=== PATIENT | female | born 1970 | race Caucasian/White ===

== ENCOUNTER → 2020-11-24 | Outpatient (CLI) | payer BC ==
--- NOTE | 2020-11-25 07:44 | ECHOF ---
Referral Reason:R07.89 Atypical Chest Pain MEASUREMENTS -------- HEIGHT: 165.1 cm WEIGHT: 106.1 kg BP: RVIDd: 2.0 cm (< 3.3) IVSd: 1.2 cm (0.6 - 1.1) LVIDd: 4.1 cm (3.9 - 5.3) LVPWd: 1.3 cm (0.6 - 1.1) IVSs: 1.5 cm LVIDs: 2.5 cm LVPWs: 1.8 cm LAESV Index (A-L): 24.69 ml/m MV EXCURSION: 22.775 mm (> 18.000) MV EF SLOPE: 155 mm/s (70 - 150) EPSS: 1.4 cm MV E Zi: 0.73 m/s MV DecT: 159 ms MV A Zi: 0.50 m/s MV E/A Ratio: 1.48 RAP: 5.00 mmHg RVSP: 16.58 mmHg FINDINGS -------- This was a technically good study. The left ventricular size is normal. There is mild concentric left ventricular hypertrophy. Overa ll left ventricular systolic function is normal with, an EF between 55 - 60 %. The diastolic fillin g pattern is normal for the age of the patient 8.04. The right ventricle is normal in size. The left atrial size is normal. Normal LA size by volume 22+/-6 ml/m2. The right atrial size is normal. Dropout seen in the interatrial septum. The aortic valve is trileaflet and appears structurally normal. The mitral valve is normal. There is trace mitral regurgitation. The tricuspid valve appears structurally normal. Mild tricuspid regurgitation present. Right vent ricular systolic pressure is normal at < 35 mmHg. There is no pulmonic regurgitation present. The aortic root size is normal. Normal inferior vena cava with normal inspiratory collapse consistent with estimated right atrial pre ssure of 5 mmHg. There is no pericardial effusion. CONCLUSIONS -------- 1. The left ventricular size is normal. 2. There is mild concentric left ventricular hypertrophy. 3. Overall left ventricular systolic function is normal with, an EF between 55 - 60 %. 4. The diastolic filling pattern is normal for the age of the patient 8.04 5. Dropout seen in the interatrial septum. 6. There is trace mitral regurgitation. 7. Mild tricuspid regurgitation present. 8. There is no pericardial effusion. GENERAL MANAGER: Joya Moore RDCS
== END | disposition home or self-care (01) ==
LOC: RADECHMAIN 14:11
PROVIDERS: ATTEND Family Medicine
DX: I08.1 Rheumatic disorders of both mitral and tricuspid valves (principal); I51.7 Cardiomegaly
CPT/HCPCS: 93306

== ENCOUNTER 2021-10-06 09:25 | Day surgery (SDC) | payer BC ==
[2021-10-03 12:57] VITALS: BMI 39.1
[~2021-10-06 09:25] MED LIST: LACTATED RINGERS 1,000 ML IV SCH
[2021-10-06 10:02] VITALS: RESP 16; TEMP 97.6
[2021-10-06 10:05] LABS: Glucose,Whole Blood 93 mg/dL (75-99)
[2021-10-06] MEDS ORDERED: LIDOCAINE 1% (10MG/ML) FOR IV START INTRADERMA ONE (10:05)
[2021-10-06] MEDS ORDERED: PROPOFOL 10 MG/ML 20 ML VIAL IV ONE (10:21)
[2021-10-06] MEDS ORDERED: LIDOCAINE 1% INJ 10MG/ML (20 ML MDV) ONE (10:21)
--- NOTE | 2021-10-06 10:45 | P.PCN ---
Date of Procedure: 10/06/21 Procedure(s) Performed: BRIEF HISTORY: Patient is a 51-year-old, pleasant, white female scheduled for an upper endoscopy as a part of evaluation of long-standing history of GERD of several years duration. Currently on Protonix 40 mg daily and doing well. Schedule for an upper endoscopy to rule out complicated reflux disease. PROCEDURE PERFORMED: Esophagogastroduodenoscopy with biopsy. PREOPERATIVE DIAGNOSIS: Long-standing history of GERD. IV sedation per anesthesia. PROCEDURE: After informed consent was obtained, the patient was brought into the endoscopy unit. IV sedation was administered by Anesthesia under continuous monitoring. Initially the Olympus GIF-140 video endoscope was inserted into the mouth. Esophagus intubated without any difficulty. It was gradually advanced into the stomach and duodenum and carefully examined. The bulb and the second part of the duodenum appeared normal. The second part of the duodenum there was a 7 mm polyp that was biopsied. The scope at this time was withdrawn to the stomach, adequately insufflated with air, and upon careful examination, mucosa of the antrum, body, cardia and the fundus appeared normal. The scope was then withdrawn into the esophagus. Small hiatal hernia noted. The GE junction was located at 36 cm from the incisors. There was once a fissure erosions at the GE junction consistent with LA grade A reflux esophagitis. The e rest of the sophagus appeared normal. The patient tolerated the procedure well. IMPRESSION: 1. 7 mm duodenal polyp status post post biopsy. 2. Small hiatal hernia and LA grade a reflux esophagitis. 2. No evidence of Mota's esophagus RECOMMENDATIONS: The findings of this examination were discussed with the patient as well as a family. She was advised to follow with the biopsy results. She will continue with Protonix 40 mg daily and continue to follow antireflux measures.
[2021-10-06 11:13] VITALS: BP 137/88; PULSE 62
== END 2021-10-06 11:29 | disposition home or self-care (01) ==
LOC: ORWHC2ENDO 09:25
PROVIDERS: ATTEND Internal Medicine Gastroenterology
DX: K21.9 Gastro-esophageal reflux disease without esophagitis (principal); I10 Essential (primary) hypertension; E11.9 Type 2 diabetes mellitus without complications; J45.909 Unspecified asthma, uncomplicated
CPT/HCPCS: 43239; 88305; J2001; J2704

== ENCOUNTER → 2024-03-06 | Outpatient (CLI) | payer MEDICAID ==
[2024-03-06 16:49] LABS: African American GFR (CKD) 69 (>60 ml/min/1.73 sqM); Blood Urea Nitrogen 20 mg/dL (7-17); Non-African American GFR(CKD) 60 (>60 ml/min/1.73 sqM)
--- NOTE | 2024-03-06 19:48 | CT ---
EXAMINATION TYPE: CT angio chest CT DLP: 474.9 mGycm, Automated exposure control for dose reduction was used. DATE OF EXAM: 03/06/2024 5:39 PM COMPARISON: Chest PA. CLINICAL INDICATION:Female, 54 years old with history of R06.09 OTHER FORMS OF DYSPNEA; nickie TECHNIQUE/CONTRAST: CTA scan of the thorax is performed with IV Contrast, patient injected with 100 mL of Isovue 370, MIP images are created and reviewed these are created on a separate workstation.. FINDINGS: Pulmonary Artery: There is no evidence for a filling defect within the pulmonary vasculature to sugge st acute pulmonary embolism. The pulmonary artery is of normal size. Lungs/Pleura: No evidence of focal consolidation, pleural effusion or pneumothorax. Airway: Large airways are patent. Heart: Heart is within normal limits for size. Vasculature: No evidence of aortic aneurysm. Mediastinum: No gross evidence of adenopathy. Musculoskeletal: No acute osseous abnormalities Soft Tissues: Unremarkable. Lower neck: No significant findings. Upper Abdomen: No significant findings. IMPRESSION: 1. No evidence of pulmonary embolism. Follow up recommendations for incidental pulmonary nodules, if there are any, are per [employer] or [employer]. https://radiopaedia.org/articles/qhsmoguajo-[email or web address]?lang=us
== END | disposition home or self-care (01) ==
LOC: RADCTMAIN 15:51
PROVIDERS: ATTEND Internal Medicine
DX: R06.09 Other forms of dyspnea (principal)
CPT/HCPCS: 82565; 84520; 71275; 36415; Q9967

== ENCOUNTER → 2024-04-01 | Outpatient (CLI) | payer MEDICAID ==
--- NOTE | 2024-04-27 12:25 | CA ---
Transthoracic Echo Report Name: Sandie Garcia Age: 54 Gender: O : 1970 Exam Date: 04/01/2024 14:01 Exam Location: [facility] Ht (in): 64 Wt (lb): 240 Ordering Physician: Attending/Referring Phys: Private Chef Mary Melton RDCS Procedure CPT: Indications: Dyspnea, unspecified Cardiac Hx: Technical Quality: Fair Contrast 1: Total Dose (mL): Contrast 2: Total Dose (mL): MEASUREMENTS (Male / Female) Normal Values 2D ECHO LV Diastolic Diameter PLAX 3.9 cm 4.2 - 5.9 / 3.9 - 5.3 cm LV Systolic Diameter PLAX 2.3 cm IVS Diastolic Thickness 1.0 cm 0.6 - 1.0 / 0.6 - 0.9 cm LVPW Diastolic Thickness 1.0 cm 0.6 - 1.0 / 0.6 - 0.9 cm LV Relative Wall Thickness 0.5 RV Internal Dim ED PLAX 1.9 cm LA Systolic Diameter LX 3.2 cm 3.0 - 4.0 / 2.7 - 3.8 cm LV Diastolic Volume MOD BP 47.3 cm??? 67 - 155 / 56 - 104 cm??? LV Systolic Volume MOD BP 16.3 cm??? 22 - 58 / 19 - 49 cm??? LV Ejection Fraction MOD BP 65.6 % >= 55 % LV Cardiac Index MOD BP 1171.7 cm???/min???m??? LV Diastolic Volume MOD 4C 56.5 cm??? LV Systolic Volume MOD 4C 15.7 cm??? LV Ejection Fraction MOD 4C 72.3 % LV Cardiac Index MOD 4C 1545.0 cm???/min???m??? LV Diastolic Length 4C 6.8 cm LV Systolic Length 4C 5.5 cm LV Diastolic Volume MOD 2C 39.2 cm??? LV Systolic Volume MOD 2C 16.5 cm??? LV Ejection Fraction MOD 2C 57.9 % LV Cardiac Index MOD 2C 857.6 cm???/min???m??? LV Diastolic Length 2C 6.7 cm LV Systolic Length 2C 5.7 cm LA Volume 63.1 cm??? 18 - 58 / 22 - 52 cm??? LA Volume Index 27.8 cm???/m??? 16 - 28 cm???/m??? M-MODE Aortic Root Diameter MM 3.1 cm LA Systolic Diameter MM 3.7 cm LA Ao Ratio MM 1.2 AV Cusp Separation MM 1.9 cm DOPPLER MV Area PHT 2.8 cm??? Mitral E Point Velocity 81.1 cm/s Mitral A Point Velocity 89.2 cm/s Mitral E to A Ratio 0.9 MV Deceleration Time 266.7 ms FINDINGS Left Ventricle Left ventricular ejection fraction is estimated at 55-60 %. Normal left ventricular wall motion. Left ventricular cavity size normal. Left ventricular wall thickness normal. Normal left ventricular systolic function with no obvious regional wall motion abnormalities. Right Ventricle Normal right ventricular size and function. Right ventricular systolic pressure within normal limits. Right Atrium Normal right atrial size. Left Atrium Mildly increased left atrial volume. Mildly increased left atrial area. Mitral Valve Structurally normal mitral valve. Trace mitral regurgitation. No mitral stenosis. Aortic Valve Trileaflet aortic valve. No aortic valve stenosis or regurgitation. Tricuspid Valve Structurally normal tricuspid valve. Trace tricuspid regurgitation. No tricuspid stenosis. Pulmonic Valve Structurally normal pulmonic valve. No pulmonic stenosis. Trace pulmonic regurgitation. Pericardium No pericardial or pleural effusion. Aorta Normal size aortic root and proximal ascending aorta. CONCLUSIONS 1. Normal left ventricular size and systolic function 2. Trace mitral and tricuspid regurgitation Previewed by: Dr. Mayank Key MD (Electronically Signed) Final Date: 02 April 2024 07:41
== END | disposition home or self-care (01) ==
LOC: RADECHMAIN 13:24
PROVIDERS: ATTEND Internal Medicine
DX: I08.1 Rheumatic disorders of both mitral and tricuspid valves (principal); R06.00 Dyspnea, unspecified
CPT/HCPCS: 93306

== ENCOUNTER → 2024-05-07 | Outpatient (CLI) | payer MEDICAID ==
--- NOTE | 2024-05-07 19:30 | CA ---
Stress Echo Report Sandie Garcia Age: 54 Gender: F : 1970 Exam Date: 05/07/2024 09:51 Exam Location: [place] [facility] Ht (in): 64 Wt (lb): 240 Ordering Physician: Mayank Key MD ([id number]) Referring Physician: MAYANK KEY,, Speed Runner: Mary Melton RDCS Technologist Procedure CPT: Indication: R06.09 Dyspnea ICD-9 Codes: Rhythm: Patient History: Cardiac Medications: metformin, atorvastatin, xisol, lisinopril, prilosec, flamatadine, asitolopram Medications in past 24 hours: Contrast: N/A Stress Results Protocol: Abebe Total dose(mL): NA Exercise Duration (min:sec): 6:[address] Depression (mm): Angina Score: Paiz Score: METS: 8.1 Resting HR: 86 Resting BP: 139 / 99 Peak HR: 155 Peak BP: 162 / 92 Max Predicted HR: 165 94 % Max Predicted HR Target HR: 140 Double Product: [id number] Stress Summary: BP Response: Reason for Termination: Reached target heart rate or work-load Cardiac Symptoms: NO SYMPTOMS ECG Analysis Resting ECG: Stress ECG: Arrhythmia: Echo Analysis Resting Echo: Peak Echo Analysis: MEASUREMENTS (Male/Female) Normal Values CONCLUSIONS Diagnosis shortness of breath on exertion Exercise stress echo revealed normal heart rate and blood pressure response No ECG evidence for ischemia no echocardiographic evidence for ischemia Excellent augmentation of overall LV contractility at peak exercise into recovery Average exercise capacity of [address] Stan Negrete MD (Electronically Signed) Final Date: 07 May 2024 19:29
== END | disposition home or self-care (01) ==
LOC: RADNMMAIN 09:37
PROVIDERS: ATTEND Internal Medicine Interventional Cardiology
DX: R06.09 Other forms of dyspnea
CPT/HCPCS: 93351